=== PATIENT | female | born 1970 | race Caucasian/White ===

== ENCOUNTER 2018-12-20 08:12 | Emergency (ER) | payer OTHER ==
[~2018-12-20] VITALS: Ht 157.5 cm; Wt 113.4 kg
[~2018-12-20 08:12] MED LIST: JANUMET 50-501 UDTAB; LISINOPRIL20 MG; PROMETHAZINE D118 ML PO; SYMBICORT 16010.2 GM IH; XOPENEX0.63 MG/3 IH; ZITHROMAX500 MG PO
== END 2018-12-20 13:17 | disposition home or self-care (01) ==
LOC: ER 08:12
DX: J06.9 Acute upper respiratory infection, unspecified (principal); R05 Cough

== ENCOUNTER 2019-01-16 01:00 | Emergency (ER) | payer OTHER ==
[~2019-01-16] VITALS: Ht 157.5 cm; Wt 113.9 kg
[2019-01-16] MEDS ORDERED: LISINOPRIL10 MG (01:09)
[2019-01-16] MEDS ORDERED: GLUCOPHAGE XR750 MG (01:10)
[2019-01-16] MEDS ORDERED: SULFASALAZINE500 MG (01:10)
[2019-01-16] MEDS ORDERED: GLIMEPIRIDE4 MG (01:10)
[2019-01-16] MEDS ORDERED: BACLOFEN10 MG (01:11)
[2019-01-16] MEDS ORDERED: VALTREX1000 MG PO (03:57)
[2019-01-16] MEDS ORDERED: TRAMADOL HCL50 MG PO ×3 (03:57→04:05)
== END 2019-01-16 04:34 | disposition home or self-care (01) ==
LOC: ER 01:00
DX: B00.89 Other herpesviral infection (principal)

== ENCOUNTER 2019-09-30 11:46 | Outpatient (CLI) | payer OTHER ==
[~2019-09-30 11:46] MED LIST changes: +BACLOFEN10 MG; +GLIMEPIRIDE4 MG; +GLUCOPHAGE XR750 MG; +LISINOPRIL10 MG; +SULFASALAZINE500 MG; +TRAMADOL HCL50 MG PO; +VALTREX1000 MG PO
== END 2019-09-30 11:54 | disposition home or self-care (01) ==
LOC: SONOGRAMA 11:46
DX: N95.0 Postmenopausal bleeding (principal)

== ENCOUNTER 2019-10-16 14:48 | Emergency (ER) | payer OTHER ==
[~2019-10-16] VITALS: Ht 157.5 cm; Wt 112.5 kg
[2019-10-16] MEDS ORDERED: DICLOFENAC SODI75 MG PO (17:56)
== END 2019-10-16 20:33 | disposition home or self-care (01) ==
LOC: ER 14:48
DX: S30.0XXA Contusion of lower back and pelvis, initial encounter (principal); M54.5 Low back pain; W22.8XXA Striking against or struck by other objects, initial encounter; Y93.89 Activity, other specified; Y92.018 Other place in single-family (private) house as the place of occurrence of the external cause; Y99.8 Other external cause status

== ENCOUNTER 2023-03-09 22:35 | Emergency (ER) | payer OTHER ==
[~2023-03-09] VITALS: Ht 157.5 cm; Wt 103.0 kg
[~2023-03-09 22:35] MED LIST changes: +DICLOFENAC SODI75 MG PO
== END 2023-03-10 01:26 | disposition home or self-care (01) ==
LOC: ER 22:35
DX: M54.2 Cervicalgia (principal); M54.59 Other low back pain